=== PATIENT | female | born 1995 | race Asian ===

== ENCOUNTER 2017-06-27 15:39 | Emergency (ER) | payer SELFPAY ==
[2017-06-27 15:43] VITALS: BP 135/99; PULSE 107; TEMP 99; BMI 25.4
[2017-06-27] MEDS ORDERED: IBUPROFEN 400 MG TABLET (FP) PO ONE ×2 (16:06→16:12)
--- NOTE | 2017-06-27 16:17 | PDOC ---
History of Present Illness - General Chief Complaint: Pain Stated Complaint: ABD PAIN Time Seen by Provider: 06/27/17 15:52 History Source: Patient - History of Present Illness Timing/Duration: reports: other (this am) Quality: reports: cramping Abdominal Pain Onset Location: reports: suprapubic Past History - Past Medical History Allergies/Adverse Reactions: Allergies Allergy/AdvReac Type Severity Reaction Status Date / Time No Known Allergies Allergy Verified 06/27/17 15:43 Home Medications: Ambulatory Orders Ibuprofen [Motrin -] 600 mg PO Q6H #30 tablet 06/27/17 Other medical history: NONE - Psycho/Social/Smoking Cessation Hx Anxiety: No Suicidal Ideation: No Smoking History: Never smoked Hx Alcohol Use: No Drug/Substance Use Hx: No Substance Use Type: None Review of Systems - Review of Systems Constitutional: No: Chills, Fever ABD/GI: Yes: Abdominal cramping. No: Nausea, Vomiting : No: Dysuria *Physical Exam - Vital Signs Last Vital Signs Temp Pulse Resp BP Pulse Ox 99.0 F 107 H 18 135/99 98 06/27/17 15:40 06/27/17 15:40 06/27/17 15:40 06/27/17 15:40 06/27/17 15:40 Medical Decision Making - Medical Decision Making 06/27/17 16:06 21-year-old female endorses history of dysmenorrhea, here with severe lower abdominal cramping in setting of menses this a.m. States pain similar to menstrual pain but worse. Took 200-400 mg Motrin today with no relief. States this is the first time she's never had to come to the ER for her menstrual cramps. No dysuria, nausea, vomiting, fever or chills. See exam Dysmenorrhea -motrin -r/o preg -reassess 06/27/17 16:17 06/27/17 16:45 Pt reports feeling significantly better w/ meds. Upreg neg. Dc w/ higher dose of motrin (600-800 mg)for pain as needed. Encourage branch officer f/u *DC/Admit/Observation/Transfer Diagnosis at time of Disposition: Dysmenorrhea - Discharge Dispostion Disposition: HOME Condition at time of disposition: Improved - Prescriptions Prescriptions: Ibuprofen [Motrin -] 600 mg PO Q6H #30 tablet - Referrals Referrals: STAFF,NOT ON [Primary Care Provider] - - Patient Instructions Printed Discharge Instructions: DI for Dysmenorrhea Additional Instructions: Take 600-800 mg of motrin as needed for pain. Take medication with food Follow up with branch officer as needed
[2017-06-27 16:29] LABS: URINE APPEARANCE CLEAR; URINE BILIRUBIN NEGATIVE (NEGATIVE); URINE BLOOD 3+ (NEGATIVE); URINE COLOR LTYELLOW; URINE GLUCOSE (UA) NEGATIVE (NEGATIVE); URINE KETONE NEGATIVE (NEGATIVE); URINE LEUK ESTERASE TRACE (NEGATIVE); URINE NITRITE NEGATIVE (NEGATIVE); URINE PROTEIN NEGATIVE (NEGATIVE); URINE UROBILINOGEN NEGATIVE mg/dL (0.2-1.0)
[2017-06-27 16:35] LABS: URINE RBC 63 /hpf (0-3); URINE WBC 5 /hpf (3-5)
== END 2017-06-27 16:52 | disposition home or self-care (01) ==
LOC: JER 15:39
DX: N94.6 Dysmenorrhea, unspecified (principal)
CPT/HCPCS: 81003; 81015; 84703; 99281-25